=== PATIENT | female | born 1970 | race Caucasian/White ===

== ENCOUNTER → 2018-07-30 13:15 | Outpatient (CLI) | payer OTHER, SELFPAY ==
--- OUTSIDE RECORDS SUMMARY | 2018-09-15 17:37 | XMS RPT_ITS ---
:1970 Author Organization [facility] Care Team Providers Name Role Phone Ирина Fried Attending Unavailable Silvia Ruiz Attending Unavailable ADRIÁN MULLER Primary Care Unavailable Ирина Mireles Attending Unavailable ADRIÁN MULLER Referring Unavailable PROBLEMS PROBLEMS DATE TYPE CONDITION / CODE ATTENDING STATUS SOURCE 07/30/2018 Unknown N39.0 - Urinary Ирина Fried Active [place] tract infection, Community site not Hospital specified / Repository N39.0(ICD-10) PROCEDURES PROCEDURES No Procedure Records FoundRESULTS RESULTS DISCHARGE INSTRUCTION Observed: 08/27/2018 Status: F Source: [place] 12:25 AM REPOSITORY [facility] Medical Records Department [address] [place] [address] Discharge Instruction 08/17/18 0034 MR#: [id number] Acct: [id number] Name: ISAK LYNCH Rep #: [id number] : 1970 47 From: Silvia Ruiz MD PCP: Adrián Muller MD Status: DEP ER ED Disposition - Plan for ED Patient: Disposition: Home or Assisted Living Chief Complaint: Lower Extremity Injury Instructions: ED Sprain Ankle W X Ray Referrals: [facility] Doctor,Out of [NON-STAFF] - 1 Week if not improving Toñito Ceballos, [STAFF PHYSICIAN] - 10-14 Days if not better Additional Instructions: Use rest, ice, compression and elevation as needed for pain relief. Use ibuprofen or naproxen as needed for pain. Weight-bear as tolerated. Please follow- up with an orthopedic doctor if you are not having improvement in 1-2 weeks. If at any point your condition worsens or you have any further concerns, return immediately to the emergency department for another evaluation. What to do if you have Problems For any increased pain, shortness of breath, bleeding, nausea or vomiting, chest pain, or any unexpected problems, contact your Primary Care Provider. Call [facility] ([phone]) or report to the closest Emergency Room. Call 911 if necessary. 08/27/18 0025 <Electronically signed by Silvia Ruiz MD> Date Silvia Ruiz MD Cosigner Signature (If Indicated): Date CC: Adrián Muller MD EMERGENCY DEPARTMENT Observed: 08/27/2018 Status: F Source: [place] SUMMARY 12:25 AM REPOSITORY [facility] Medical Records Department [address] [place] [address] Emergency Department Summary 08/16/18 2259 MR#: [id number] Acct: [id number] Name: ISAK LYNCH Rep #: [id number] : 1970 47 From: Silvia Ruiz MD PCP: Adrián Muller MD Status: DEP ER - ER Visit Summary Date of Service: 08/16/18 Chief Complaint: Left lower extremity injury History of Present Illness: The patient is a 47 F who presents for evaluation of her left lower extremity after rolling her ankle on a step. Patient did fall and landed on the lateral side of her lower leg. She is having pain in the lateral ankle, across the top of the foot, across the bottom of the foot, and up to the knee. She initially was able to get up and bear weight. She continued her chores for approximately 3 hours. She then sat down for a period of time, and when she got back up she had severe pain and was unable to bear weight at that time. She tried Aleve, ice and Epsom salt soak without any relief. Patient is not on any blood thinners. Denies any other injuries from the fall. Physical Examination: Patient is well-nourished and well-developed sitting in bed in no distress. Examination of the left lower extremity shows a 2+ DP pulse. Sensation and motor function intact all dermatomes. Patient has tenderness along the lateral proximal fibula without noted deformity. Able to flex and extend the knee without difficulty. Tenderness to palpation along the posterior lateral malleolus with mild swelling and no deformity noted. Tenderness to palpation of the dorsum of the proximal foot. No tenderness to the navicular head or fifth metatarsal base. Test Results: Medications Given Discontinued Medications Hydrocodone Bitart/Acetaminophen ([place] 5mg-325mg) 1 tablet PO X1 ONE Stop: 08/16/18 22:59 Last Admin: 08/16/18 23:20 Dose: 1 tablet Clinical Impression(s) from Imaging Studies Ankle X-Ray 08/16/18 22:37 IMPRESSION: No fracture or dislocation. Electronically Signed: Adrián Bonilla, at 23:20 EST Tel , Service support , Tibia/Fibula X-Ray 08/16/18 22:58 IMPRESSION: Negative for fracture or acute osseous abnormality. at 0023 Reported and signed by: Donta Rodriguez MD Electronically Signed: Donta Rodriguez, at 0:22 EST Tel , Service support , Foot X-Ray 08/16/18 23:25 IMPRESSION: Negative for fracture or acute osseous abnormality. at 0022 Reported and signed by: Donta Rodriguez MD Electronically Signed: Donta Rodriguez, at 0:20 EST Tel , Service support , Emergency Department Course and Treatment: X-ray performed ankle, foot and entire tib-fib. Patient is already taking Aleve for pain and was given one [place] in the emergency department. Ice pack placed. X-rays showed no fractures in the foot, ankle or the proximal tib-fib. Patient was placed in an Aircast. She was offered crutches and declined. She will weight-bear as tolerated. She will use RICE therapy and NSAIDs as needed for pain. Patient discharged home. Treatment Plan: [] Disposition: [] Impression: Left ankle sprain This note was generated with [employer] dictation software. It may contain incorrect words, spelling, and punctuation that were not noted in review of the chart prior to signing ED Disposition - Plan for ED Patient: Chief Complaint: Lower Extremity Injury Referrals: [facility] Doctor,Out of [NON-STAFF] - What to do if you have Problems For any increased pain, shortness of breath, bleeding, nausea or vomiting, chest pain, or any unexpected problems, contact your Primary Care Provider. Call [facility] ([phone]) or report to the closest Emergency Room. Call 911 if necessary. 08/27/18 0025 <Electronically signed by Silvia Ruiz MD> Date Silvia Ruiz MD Cosigner Signature (If Indicated): Date CC: Adrián Muller MD FOOT MIN 3 VIEWS Observed: 08/16/2018 Status: F Source: [place] 10:59 PM REPOSITORY [facility] Imaging Services [facility] [place] [address] Foot min 3 Views MR#: [id number] Acct: [id number] Name: ISAK LYNCH Rep #: [id number] : 1970 F 47 From: Donta Rodriguez MD PCP: Adrián Muller MD Status: REG ER Study: Foot min 3 Views Date of Exam: 08/16/18 Exam# [id number] Ordering Dr: Silvia Ruiz MD HISTORY: FALL COMPARISON: None FINDINGS: XR left foot 3 views: No fracture or dislocation. Joint spaces appear preserved. The plantar arch is maintained. No radiopaque foreign body. RAD/Foot min 3 Views IMPRESSION: Negative for fracture or acute osseous abnormality. at 0022 Reported and signed by: Donta Rodriguez MD Electronically Signed: Donta Rodriguez, at 0:20 EST Tel , Service support , CC: Silvia Ruiz MD; Adrián Muller MD Principal Android Developer: Signed TIBIA AND FIBULA Observed: 08/16/2018 Status: F Source: [place] 2 VIEWS 10:59 PM REPOSITORY [facility] Imaging Services [address] [place] [address] Tibia AND Fibula 2 Views MR#: [id number] Acct: [id number] Name: ISAK LYNCH Rep #: [id number] : 1970 F 47 From: Donta Rodriguez MD PCP: Adrián Muller MD Status: REG ER Study: Tibia AND Fibula 2 Views Date of Exam: 08/16/18 Exam# [id number] Ordering Dr: Silvia Ruiz MD HISTORY: FALL COMPARISON: None FINDINGS: XR left Tibia/Fibula 2 Views: No fracture, dislocation, or acute osseous abnormality. As visualized, the soft tissues are negative. No radiopaque foreign body. RAD/Tibia AND Fibula 2 Views IMPRESSION: Negative for fracture or acute osseous abnormality. at 0023 Reported and signed by: Donta Rodriguez MD Electronically Signed: Donta Rodriguez, at 0:22 EST Tel , Service support , CC: Silvia Ruiz MD; Adrián Muller MD Principal Android Developer: Signed ANKLE MIN 3 VIEWS Observed: 08/16/2018 Status: F Source: [place] 10:37 PM REPOSITORY [facility] Imaging Services [address] [place] [address] Ankle min 3 Views MR#: [id number] Acct: [id number] Name: ISAK LYNCH Rep #: [id number] : 1970 F 47 From: Adrián Bonilla MD PCP: Adrián Muller MD Status: REG ER Study: Ankle min 3 Views Date of Exam: 08/16/18 Exam# [id number] Ordering Dr: Silvia Ruiz MD STUDY: X-RAY - LEFT ANKLE REASON FOR EXAM: Female, 47 years old. Pain TECHNIQUE: Right view(s) of the ankle. COMPARISON: None. FINDINGS: There is no evidence of fracture or dislocation. There are no significant degenerative changes. There are no radiodense foreign bodies. RAD/Ankle min 3 Views IMPRESSION: No fracture or dislocation. Electronically Signed: Adrián Bonilla, at 23:20 EST Tel , Service support , CC: Silvia Ruiz MD; Adrián Muller MD Principal Android Developer: Signed Observed: 07/30/2018 Status: F Source: [place] CULTURE, URINE 11:15 AM REPOSITORY Urine Culture Below infection level. ORGANISM 1: Presumptive E. coli [place] Count <1000 Performed By: #### M100.0650 #### [facility] [address] [facility] [place], [address] ALLERGIES ALLERGIES DATE TYPE / CODE NAME / CODE REACTION SEVERITY SOURCE 08/16/2018 Drug No Known Unknown [facility] Allergy/4160 Allergies/F00 Hospital 49189(SNOMED [id number](RXNOR Repository CT) M) ENCOUNTERS ENCOUNTERS ADMIT/DISCHARGE ACCOUNT ADMITTING ENCOUNTER LOCATION SOURCE NUMBER CLASS 08/16/2018/ [id number] Emergency [place] [facility] ing:ED Repository 07/30/2018 [id number] Ambulatory [place] [facility] ing:LABSPEC Repository 03/28/2018/ [id number] Ambulatory BMSBuilding:B [place] [address] [facility] Repository PAYERS PAYERS ENCOUNTER GUARANTOR PAYER SUBSCRIBER SOURCE 08/16/2018 INDERJIT J Primary INDERJIT J [place] [id number] Insurance:MEDICAL KOVACSDOB: [facility] [id number]: Repository [address]Agy: 330 [id number] [phone] () Date:[id number] [address] [place] [id number]: 08/16/2018 Secondary NOT GIVENUNK [place] Insurance:SELF PAY [facility] Number: Effective Repository Date:2018-08-16 07/30/2018 Inderjit J Primary Inderjit J [place] [id number] Insurance:MEDICAL KovacsDOB: [facility] [id number], Number: Repository [place] [id number]: [id number] Date:7412-28-53PV BOX (GH) [address] [place] [id number]: 07/30/2018 Secondary NOT GIVENUNK [place] Insurance:SELF PAY [facility] Number: Effective Repository Date:2018-07-30 03/28/2018 Inderjit J Primary NOT GIVENUNK [place] [id number] Insurance:SELF PAY [facility], Number: Effective Repository [place] [address]Hpj: Date:2018-03-28 ()
== END ==
PROVIDERS: Visit Provider Obstetrics & Gynecology
DX: N39.0 Urinary tract infection, site not specified (principal)
CPT/HCPCS: 87086; 87088

== ENCOUNTER 2018-08-16 22:33 | Emergency (ER) | payer OTHER, SELFPAY ==
[2018-08-16 22:34] VITALS: BP 149/82; PULSE 75; RESP 16; TEMP 36.6; O2SAT 100; BMI 24.9
--- NOTE | 2018-08-16 22:37 | RAD_ITS ---
STUDY: X-RAY - LEFT ANKLE REASON FOR EXAM: Female, 47 years old. Pain TECHNIQUE: Right view(s) of the ankle. COMPARISON: None. FINDINGS: There is no evidence of fracture or dislocation. There are no significant degenerative changes. There are no radiodense foreign bodies. RAD/Ankle min 3 Views IMPRESSION: No fracture or dislocation. Electronically Signed: Justino Bonilla, at 23:20 EST Tel , Service support ,
--- NOTE | 2018-08-16 22:58 | RAD_ITS ---
HISTORY: FALL COMPARISON: None FINDINGS: XR left Tibia/Fibula 2 Views: No fracture, dislocation, or acute osseous abnormality. As visualized, the soft tissues are negative. No radiopaque foreign body. RAD/Tibia & Fibula 2 Views IMPRESSION: Negative for fracture or acute osseous abnormality. at 0023 Reported and signed by: Donta Rodriguez MD Electronically Signed: Donta Rodriguez, at 0:22 EST Tel , Service support ,
--- NOTE | 2018-08-16 22:59 | ED.VISSUMM ---
- ER Visit Summary Date of Service: 08/16/18 Chief Complaint: Left lower extremity injury History of Present Illness: The patient is a 47 F who presents for evaluation of her left lower extremity after rolling her ankle on a step. Patient did fall and landed on the lateral side of her lower leg. She is having pain in the lateral ankle, across the top of the foot, across the bottom of the foot, and up to the knee. She initially was able to get up and bear weight. She continued her chores for approximately 3 hours. She then sat down for a period of time, and when she got back up she had severe pain and was unable to bear weight at that time. She tried Aleve, ice and Epsom salt soak without any relief. Patient is not on any blood thinners. Denies any other injuries from the fall. Physical Examination: Patient is well-nourished and well-developed sitting in bed in no distress. Examination of the left lower extremity shows a 2+ DP pulse. Sensation and motor function intact all dermatomes. Patient has tenderness along the lateral proximal fibula without noted deformity. Able to flex and extend the knee without difficulty. Tenderness to palpation along the posterior lateral malleolus with mild swelling and no deformity noted. Tenderness to palpation of the dorsum of the proximal foot. No tenderness to the navicular head or fifth metatarsal base. Test Results: Medications Given Discontinued Medications Hydrocodone Bitart/Acetaminophen ([place] 5mg-325mg) 1 tablet PO X1 ONE Stop: 08/16/18 22:59 Last Admin: 08/16/18 23:20 Dose: 1 tablet Clinical Impression(s) from Imaging Studies Ankle X-Ray 08/16/18 22:37 IMPRESSION: No fracture or dislocation. Electronically Signed: Justino Bonilla, at 23:20 EST Tel , Service support , Tibia/Fibula X-Ray 08/16/18 22:58 IMPRESSION: Negative for fracture or acute osseous abnormality. at 0023 Reported and signed by: Donta Rodriguez MD Electronically Signed: Donta Rodriguez, at 0:22 EST Tel , Service support , Foot X-Ray 08/16/18 23:25 IMPRESSION: Negative for fracture or acute osseous abnormality. at 0022 Reported and signed by: Donta Rodriguez MD Electronically Signed: Donta Rodriguez, at 0:20 EST Tel , Service support , Emergency Department Course and Treatment: X-ray performed ankle, foot and entire tib-fib. Patient is already taking Aleve for pain and was given one [place] in the emergency department. Ice pack placed. X-rays showed no fractures in the foot, ankle or the proximal tib-fib. Patient was placed in an Aircast. She was offered crutches and declined. She will weight-bear as tolerated. She will use RICE therapy and NSAIDs as needed for pain. Patient discharged home. Treatment Plan: [] Disposition: [] Impression: Left ankle sprain This note was generated with [employer] dictation software. It may contain incorrect words, spelling, and punctuation that were not noted in review of the chart prior to signing ED Disposition - Plan for ED Patient: Chief Complaint: Lower Extremity Injury Referrals: [facility] Doctor,Out of [NON-STAFF] -
[2018-08-16] MEDS: HYDROcodone Bitartrate/Apap 5/325 Tablet PO (23:20)
--- NOTE | 2018-08-16 23:25 | RAD_ITS ---
HISTORY: FALL COMPARISON: None FINDINGS: XR left foot 3 views: No fracture or dislocation. Joint spaces appear preserved. The plantar arch is maintained. No radiopaque foreign body. RAD/Foot min 3 Views IMPRESSION: Negative for fracture or acute osseous abnormality. at 0022 Reported and signed by: Donta Rodriguez MD Electronically Signed: Donta Rodriguez, at 0:20 EST Tel , Service support ,
--- NOTE | 2018-08-17 00:34 | ED.DEP ---
ED Disposition - Plan for ED Patient: Disposition: Home or Assisted Living Chief Complaint: Lower Extremity Injury Instructions: ED Sprain Ankle W X Ray Referrals: [facility] Doctor,Out of [NON-STAFF] - 1 Week if not improving Toñito Ceballos DO [STAFF PHYSICIAN] - 10-14 Days if not better Additional Instructions: Use rest, ice, compression and elevation as needed for pain relief. Use ibuprofen or naproxen as needed for pain. Weight-bear as tolerated. Please follow-up with an orthopedic doctor if you are not having improvement in 1-2 weeks. If at any point your condition worsens or you have any further concerns, return immediately to the emergency department for another evaluation.
[2018-08-17 01:08] VITALS: RESP 16
== END 2018-08-17 01:08 | disposition home or self-care (01) ==
PROVIDERS: Emergency Provider Emergency Medicine; Family Provider Family Medicine; PCP Family Medicine
DX: S93.402A Sprain of unspecified ligament of left ankle, initial encounter (principal); W50.2XXA Accidental twist by another person, initial encounter; Y93.9 Activity, unspecified
CPT/HCPCS: 73590; 73610; 73630; 99283